=== PATIENT | male | born 1980 | race Caucasian/White ===

== ENCOUNTER 2023-05-28 08:02 | Outpatient (CLI) | payer OTHER, SELFPAY | END 2023-05-28 08:03 | disposition home or self-care (01) | PROVIDERS: PCP Family Medicine; Visit Provider Dermatology | DX: Z00.00 Encounter for general adult medical examination without abnormal findings (principal); L40.9 Psoriasis, unspecified | CPT/HCPCS: 80053; 86480 ==

== ENCOUNTER 2023-07-31 07:30 | Outpatient (CLI) | payer OTHER, SELFPAY | END 2023-07-31 07:31 | disposition home or self-care (01) | LOC: NFLDREF 08-05 12:37 | PROVIDERS: PCP Family Medicine; Referring Provider Family Medicine; Visit Provider Dermatology | DX: Z51.81 Encounter for therapeutic drug level monitoring (principal); Z79.631 Long term (current) use of antimetabolite agent; Z92.21 Personal history of antineoplastic chemotherapy | CPT/HCPCS: 80053 ==

== ENCOUNTER 2023-09-10 07:53 | Outpatient (CLI) | payer OTHER, SELFPAY | END 2023-09-10 07:54 | disposition home or self-care (01) | LOC: FRMREF 07:53 | PROVIDERS: PCP Family Medicine; Visit Provider Dermatology | DX: Z51.81 Encounter for therapeutic drug level monitoring (principal); Z79.631 Long term (current) use of antimetabolite agent | CPT/HCPCS: 80053 ==

== ENCOUNTER 2024-09-15 08:17 | Outpatient (CLI) | payer OTHER, SELFPAY | END 2024-09-15 08:18 | disposition home or self-care (01) | LOC: LKVREF 08:23 | PROVIDERS: PCP Family Medicine; Visit Provider Family Medicine | DX: E04.1 Nontoxic single thyroid nodule (principal); R79.89 Other specified abnormal findings of blood chemistry; R73.9 Hyperglycemia, unspecified | CPT/HCPCS: 80061; 84439; 84443 ==

== ENCOUNTER 2024-09-23 08:04 | Outpatient (CLI) | payer OTHER, SELFPAY ==
--- NOTE | 2024-09-23 08:15 | CRLHL7_ITS ---
For Patients: As a result of the Cures Act, medical imaging exams and procedure reports are released immediately into your electronic medical record. You may view this report before your referring provider. If you have questions, please contact your health care provider. INDICATION: Thyroid nodule COMPARISON: Outside CT not available TECHNIQUE: Estrada scale and color Doppler images were acquired of the thyroid gland. FINDINGS: Solid and cystic nodule inferior pole right thyroid lobe measures 18 x 15 x 17 millimeters, TR 3. Additional solid and cystic nodule upper pole right thyroid lobe measures 16 x 11 x 10 millimeters, TR 3. Solid and cystic nodule upper pole right thyroid lobe measures 28 x 11 x 23 millimeters, TR 3. Isthmus measures 1.7 millimeters. Thyroid is heterogeneous. The right lobe measures 8.8 x 2.4 x 3.4 cm and the left lobe measures 8.4 x 2.8 x 3.6 cm in size. Other smaller nodules are also present bilaterally. The color Doppler images demonstrate normal vascularity. There is no evidence of cervical lymphadenopathy or parathyroid mass. IMPRESSION: 2.8 cm TR 3 nodule upper pole right thyroid lobe. FNA recommended. Dictated by Vel Zaman MD @ 09/24/2024 2:00:55 PM (Electronically Signed)
== END 2024-09-23 08:05 | disposition home or self-care (01) ==
LOC: US 08:05
PROVIDERS: PCP Family Medicine; Visit Provider Family Medicine
DX: R79.89 Other specified abnormal findings of blood chemistry (principal); K76.0 Fatty (change of) liver, not elsewhere classified; E04.1 Nontoxic single thyroid nodule; R73.9 Hyperglycemia, unspecified
CPT/HCPCS: 76536; 76705

== ENCOUNTER 2024-10-05 09:52 | Outpatient (CLI) | payer OTHER, SELFPAY ==
--- NOTE | 2024-10-05 10:15 | CRLHL7_ITS ---
For Patients: As a result of the Century Cures Act, medical imaging exams and procedure reports are released immediately into your electronic medical record. You may view this report before your referring provider. If you have questions, please contact your health care provider. INDICATION : Right thyroid nodule. TECHNIQUE : Ultrasound-guided fine needle aspiration of thyroid nodule. COMPARISON : 09/23/2024 FINDINGS : PROCEDURE: After the informed consent and time-out, multiple fine needle aspirations were obtained from the thyroid nodule. Fine needle performed. 25 gauge needles were used. Lidocaine was used for local anesthesia. The preliminary cytology was adequate for interpretation. Real-time imaging was used for guidance and needle placement. Post imaging ultrasound demonstrates no immediate complication. IMPRESSION : Successful fine needle aspiration of right thyroid nodule. Dictated by Vel Zaman MD @ 10/05/2024 11:54:12 AM (Electronically Signed)
== END 2024-10-05 09:53 | disposition home or self-care (01) ==
LOC: US 09:53
PROVIDERS: PCP Family Medicine; Visit Provider Family Medicine
DX: E04.1 Nontoxic single thyroid nodule (principal)
CPT/HCPCS: 10005; 88173